=== PATIENT | female | born 1955 | race Hispanic/Latino ===

== ENCOUNTER 2020-05-07 16:19 | Observation (INO) | payer MEDICARE, OTHER ==
[2020-05-07] MEDS ORDERED: ASPIRIN 325 MG TABLET ONE (17:13)
[2020-05-07 17:15] LABS: BASOPHILS % (AUTO) 0.4 % (0.0-5.0); EOSINOPHILS % (AUTO) 0.9 % (0.0-8.0); HEMATOCRIT 40.7 % (36-48); LYMPHOCYTES % (AUTO) 23.5 % (21.0-51.0); MEAN CORPUSCULAR HEMOGLOBIN 30.8 pg (27.0-33.0); MEAN CORPUSCULAR HGB CONC 33.2 g/dL (32.0-36.0); MEAN CORPUSCULAR VOLUME 92.9 fL (79-99); MONOCYTES % (AUTO) 5.4 % (3.0-13.0); NEUTROPHILS % (AUTO) 69.7 % (40.0-77.0); PLATELET COUNT (AUTO) 222 K/uL (130-400); RED BLOOD CELL COUNT(AUTO) 4.38 MIL/uL (4.00-5.50); RED CELL DISTRIBUTION WIDTH 13.4 % (11.0-15.5); WHITE BLOOD COUNT (AUTO) 6.8 K/uL (4.8-10.8)
[2020-05-07 17:33] LABS: INR 1.04 (0.85-1.15); PROTHROMBIN TIME 11.3 SEC (9.6-11.6)
[2020-05-07 17:34] LABS: PARTIAL THROMBOPLASTIN TIME 28.8 SEC (26.3-35.5)
[2020-05-07 17:40] LABS: CREATININE 0.5 mg/dL (0.5-1.5); POTASSIUM 4.3 mmol/L (3.5-5.1)
[2020-05-07 17:45] LABS: BILIRUBIN,TOTAL 0.4 mg/dL (0.2-1.0); TOTAL PROTEIN, SERUM 7.5 g/dL (6.0-8.3)
[2020-05-07 18:02] LABS: B-TYPE NATRIURETIC PEPTIDE 12 pg/mL (0-100)
[2020-05-07] MEDS ORDERED: NITROGLYCERIN 1GM OINT 1 INCH/1GM TD SCH (22:30)
[2020-05-07] MEDS ORDERED: ONDANSETRON 4MG INJ IV PRN (22:30)
[2020-05-07] MEDS ORDERED: ACETAMINOPHEN 325 MG TAB PO PRN ×2 (22:30)
[2020-05-07] MEDS ORDERED: MORPHINE 2 MG SYG IV PRN (22:30)
[2020-05-07] MEDS ORDERED: ATORVASTATIN 20 MG TABLET PO SCH (22:30)
[2020-05-07] MEDS ORDERED: LACTULOSE 20 GM/30 ML UDCUP PO PRN (22:30)
[2020-05-07 23:04] LABS: HEMOGLOBIN A1C 5.6 % (4.0-6.0)
[2020-05-07 23:16] LABS: CREATINE KINASE, TOTAL 64 U/L (21-232); MYOGLOBIN 35 ng/mL (10-92); THYROID STIMULATING HORMONE 1.75 uIU/mL (0.36-3.74); TROPONIN I < 0.04 ng/mL (0.00-0.06)
[2020-05-07 23:30] LABS: CRP QUANTITATIVE < 2.00 mg/L (0.00-9.0)
[2020-05-08] MEDS ORDERED: NAPR-1023 PO (04:50)
[2020-05-08] MEDS ORDERED: PANT40TA PO (04:50)
[2020-05-08 08:04] LABS: CHOLESTEROL 180 mg/dL (<200); CREATINE KINASE, TOTAL 70 U/L (21-232); HDL CHOLESTEROL 72 mg/dL (35-85); LDL DIRECT 94 mg/dL (0-99); MYOGLOBIN 60 ng/mL (10-92); TRIGLYCERIDES 64 mg/dL (30-200); TROPONIN I < 0.04 ng/mL (0.00-0.06)
[2020-05-08] MEDS ORDERED: ENOXAPARIN SODIUM 40 MG/0.4 ML SYRINGE SQ SCH (09:00)
[2020-05-08] MEDS ORDERED: ASPIRIN 325 MG TABLET PO SCH (09:00)
[2020-05-08] MEDS ORDERED: FAMOTIDINE 20MG VIAL IV SCH (09:00)
[2020-05-08] MEDS ORDERED: METOPROLOL TARTRATE 25 MG TAB PO SCH ×2 (09:00)
== END 2020-05-08 07:43 | disposition home or self-care (01) ==
LOC: EDH 16:19 → EDHIP 22:24
PROVIDERS: ADMIT Internal Medicine; ATTEND Internal Medicine
DX: M94.0 Chondrocostal junction syndrome [Tietze] (principal); I44.4 Left anterior fascicular block; Z90.49 Acquired absence of other specified parts of digestive tract; Z79.899 Other long term (current) drug therapy
CPT/HCPCS: 36415 ×2; 71045; 80053; 80061; 82550 ×3; 83036; 83874 ×2; 83880; 84443; 84484 ×3; 85025; 85610; 85651; 85730; 86140; 93005 ×3; 99285; G0378 ×10

== ENCOUNTER → 2022-07-02 | Outpatient (CLI) | payer OTHER ==
[~2022-07-02] MED LIST: NAPR-1023 PO; PANT40TA PO
== END | disposition home or self-care (01) ==
LOC: RAH 07:31
PROVIDERS: ATTEND Internal Medicine Gastroenterology
DX: R14.0 Abdominal distension (gaseous) (principal); R10.10 Upper abdominal pain, unspecified
CPT/HCPCS: 78264; A9541